=== PATIENT | female | born 1955 | race Caucasian/White ===

== ENCOUNTER 2019-06-07 07:52 | Outpatient (CLI) | payer OTHER ==
[~2019-06-07 07:52] MED LIST: ACETAMINOOPHEN-1 TAB PO; AMBIEN10 MG PO; CIPRO750 MG PO; Colace 100MG PO; METHYLPRED4 MG/DOSE- PO; NEURONTIN PO
== END 2019-06-08 08:22 | disposition home or self-care (01) ==
LOC: SONOGRAMA 07:52
DX: E04.1 Nontoxic single thyroid nodule (principal)